=== PATIENT | female | born 1995 | race American Indian/Alaskan Native ===

== ENCOUNTER 2017-09-10 11:55 | Emergency (ER) | payer MEDICAID ==
[2017-09-10 13:15] LABS: Basophils % (Auto) 0.3 % (0.0-1.8); Eosinophils % (Auto) 0.4 % (0.0-4.3); Hematocrit 27.8 % (30.3-42.9); Hemoglobin 8.9 gm/dl (10.1-14.3); Lymphocytes # (Auto) 1.4 K/mm3 (1.2-5.4); Lymphocytes % (Auto) 22.8 % (13.4-35.0); Mean Corpuscular HGB Conc 32 % (30-34); Mean Corpuscular Hemoglobin 26 pg (28-32); Mean Corpuscular Volume 82 fl (79-97); Monocytes # (Auto) 0.8 K/mm3 (0.0-0.8); Platelet Count 158 K/mm3 (140-440); Red Cell Distribution Width 16.4 % (13.2-15.2)
[2017-09-10 13:35] LABS: Bilirubin,Urine NEG (Negative); Blood,Urine NEG (Negative); Color,Urine Yellow (Yellow); Mucus,Urine FEW /HPF; Protein,Urine <15 mg/dL mg/dL (Negative)
[2017-09-10 16:21] VITALS: BP 110/61
--- NOTE | 2017-09-10 17:02 | Ultrasound Report ---
FINAL REPORT EXAM: US OB > = 14 WEEKS FETUS HISTORY: PREG AND ABD PAIN TECHNIQUE: Ultrasound evaluation of the gravid uterus of twin A PRIORS: Ob ultrasound of twin B FINDINGS: Twin A: There is a single viable intrauterine with documented cardiac activity. Multiple ultrasound measurements are made to determine a composite gestational age. Nonspecific slight increased cephalic index of 84.8, upper limits 83.0. Other ratios are within normal limits. Limited study due to twin gestational and gestational age There is no evidence of placenta previa or abruption. The maternal cervix is closed. The quantity of visualized amniotic fluid appears grossly normal. No sonographic abnormality in the visualized portion of the anatomy. Heart rate: 152 beats per minute position: Cephalic Placental position: Left lateral, grade 1 Maternal cervix length: 3.3cm Amniotic fluid largest vertical pocket: 7.8cm Estimated weight: 1246 g Ultrasound estimated gestational age: 28 weeks 6 days Ultrasound estimated delivery date: 11/27/2017 LMP estimated gestational age: 23 weeks 3 days LMP estimated delivery date: 01/04/2018 IMPRESSION: Twin viable intrauterine with the above parameters for twin A
--- NOTE | 2017-09-10 17:05 | Ultrasound Report ---
FINAL REPORT EXAM: US OB > = 14 WK FETUS ADD GEST HISTORY: PREG ABD PAIN TECHNIQUE: Ultrasound evaluation of the gravid uterus of twin B PRIORS: Twin A ultrasound 09/10/2017 FINDINGS: Twin B: There is a single viable intrauterine with documented cardiac activity. Multiple ultrasound measurements are made to determine a composite gestational age. ratios are within normal limits. There is no evidence of placenta previa or abruption. The maternal cervix is closed. The quantity of visualized amniotic fluid appears grossly normal. No sonographic abnormality in the visualized portion of the anatomy. Heart rate: 133 beats per minute position: Breech Placental position: Fundal, grade 1 Maternal cervix length: 3.3cm Amniotic fluid largest vertical pocket: 6.0cm Estimated weight: 1456 g Ultrasound estimated gestational age: 29 weeks 5 days Ultrasound estimated delivery date: 11/21/2017 LMP estimated gestational age: 23 weeks 3 days LMP estimated delivery date: 01/04/2018 IMPRESSION: Twin viable intrauterine with the above parameters for twin B
--- NOTE | 2017-09-10 17:25 | Emergency Department Report ---
ED Female HPI - General Chief complaint: Abdominal Pain Stated complaint: PREG/DONT HAVE A DOC/ABD PAIN Time Seen by Provider: 09/10/17 16:39 Source: patient Mode of arrival: Ambulatory Limitations: No Limitations - History of Present Illness Initial comments: Patient is 22 years old female 2 para 1, 23 weeks twins . Patient does not have any care so far. She does not have an OB doctor that she follow-up loose. Patient presented to the ER complaining of abdominal pain crampy in nature, and daphnie. Patient denied any vaginal bleeding or vaginal discharge. No fever, nausea or vomiting. MD Complaint: pelvic pain - Related Data Home Medications Medication Instructions Recorded Confirmed Last Taken Pnv with Ca,No.71/Iron/FA 1 tab PO DAILY 06/30/14 06/30/14 06/26/14 [ Vitamin Tablet] 1 tab Allergies Allergy/AdvReac Type Severity Reaction Status Date / Time No Known Allergies Allergy Verified 06/29/14 06:18 ED Review of Systems ROS: Stated complaint: PREG/DONT HAVE A DOC/ABD PAIN Other details as noted in HPI Comment: All other systems reviewed and negative Constitutional: denies: chills, fever Respiratory: denies: cough, orthopnea, shortness of breath, SOB with exertion, SOB at rest, wheezing Cardiovascular: denies: chest pain, palpitations, dyspnea on exertion Gastrointestinal: abdominal pain. denies: nausea, vomiting, diarrhea, constipation, hematemesis, melena, hematochezia Genitourinary: denies: urgency, dysuria, frequency, hematuria Neurological: denies: headache, weakness, numbness ED Past Medical Hx - Past Medical History Hx Hypertension: No Hx Congestive Heart Failure: No Hx Diabetes: No Hx Deep Vein Thrombosis: No Hx Renal Disease: No Hx Sickle Cell Disease: No Hx Seizures: No Hx Asthma: No Hx COPD: No Hx HIV: No - Surgical History Past Surgical History?: No - Social History Smoking Status: Never Smoker Substance Use Type: None - Medications Home Medications: Home Medications Medication Instructions Recorded Confirmed Last Taken Type Pnv with Ca,No.71/Iron/FA 1 tab PO DAILY 06/30/14 06/30/14 06/26/14 History [ Vitamin Tablet] 1 tab ED Physical Exam - General Limitations: No Limitations General appearance: alert, in no apparent distress - Head Head exam: Present: atraumatic, normocephalic, normal inspection - Eye Eye exam: Present: normal appearance, PERRL - ENT ENT exam: Present: normal exam, normal orophraynx, mucous membranes moist - Neck Neck exam: Present: normal inspection, full ROM. Absent: tenderness, meningismus - Respiratory Respiratory exam: Present: normal lung sounds bilaterally. Absent: respiratory distress, wheezes, rales, rhonchi, accessory muscle use, decreased breath sounds , prolonged expiratory - Cardiovascular Cardiovascular Exam: Present: tachycardia - GI/Abdominal GI/Abdominal exam: Present: soft, distended, normal bowel sounds, organomegaly ( gravid uterus). Absent: tenderness, guarding, rebound, rigid, mass, bruit, pulsatile mass, hernia - Back Exam Back exam: Present: normal inspection, full ROM. Absent: CVA tenderness (R), CVA tenderness (L), muscle spasm, paraspinal tenderness, vertebral tenderness - Neurological Exam Neurological exam: Present: alert, oriented X3, CN II-XII intact, normal gait - Skin Skin exam: Present: warm, intact, normal color ED Course Vital Signs 09/10/17 09/10/17 12:32 16:20 Temperature 98.1 F Pulse Rate 116 H 80 Respiratory 15 16 Rate Blood Pressure 123/69 Blood Pressure 110/61 [Left] O2 Sat by Pulse 99 100 Oximetry ED Medical Decision Making - Lab Data Result diagrams: 09/10/17 12:50 - Radiology Data Radiology results: report reviewed Referring Physician: KIP CHASE Patient Name: YOLIS MATTSON Date of : 1995 Sex: Female Report Date: 2017-09-10 Report Status: Finalized Findings [facility] [address] [place] [address] Ultrasound Report Signed Patient: YOLIS MATTSON MR#: [id number] : 1995 Acct:[id number] Age/Sex: 22 / F ADM Date: 09/10/17 Loc: ED Attending Dr: Ordering Physician: KIP CHASE Date of Service: 09/10/17 Procedure(s): US OB >= 14 weeks Fetus Accession Number(s): [id number] cc: MOHAMED H. ELBASHA FINAL REPORT EXAM: US OB gt; = 14 WEEKS FETUS HISTORY: PREG AND ABD PAIN TECHNIQUE: Ultrasound evaluation of the gravid uterus of twin A PRIORS: Ob ultrasound of twin B FINDINGS: Twin A: There is a single viable intrauterine with documented cardiac activity. Multiple ultrasound measurements are made to determine a composite gestational age. Nonspecific slight increased cephalic index of 84.8, upper limits 83.0. Other ratios are within normal limits. Limited study due to twin gestational and gestational age There is no evidence of placenta previa or abruption. The maternal cervix is closed. The quantity of visualized amniotic fluid appears grossly normal. No sonographic abnormality in the visualized portion of the anatomy. Heart rate: 152 beats per minute position: Cephalic Placental position: Left lateral, grade 1 Maternal cervix length: 3.3cm Amniotic fluid largest vertical pocket: 7.8cm Estimated weight: 1246 g Ultrasound estimated gestational age: 28 weeks 6 days Ultrasound estimated delivery date: 11/27/2017 LMP estimated gestational age: 23 weeks 3 days LMP estimated delivery date: 01/04/2018 IMPRESSION: Twin viable intrauterine with the above parameters for twin A Transcribed By: BAL Dictated By: JESSICA BENTON MD Electronically Authenticated By: JESSICA BENTON MD Signed Date/Time: 09/10/171655 DD/ 55 TD/TT: 09/10/171655 - Medical Decision Making I discussed the patient with Prachi Newton, nurse practitioner with Dr. Pickard, she advised to send the patient to labor and delivery. Critical care attestation.: If time is entered above; I have spent that time in minutes in the direct care of this critically ill patient, excluding procedure time. ED Disposition Clinical Impression: care insufficient, Abdominal pain affecting , Twin Disposition: -09 OP ADMIT IP TO THIS HOSP Is pt being admited?: No Condition: Stable Instructions: Abdominal Pain (ED) Additional Instructions: Proceed to labor and delivery Referrals: PRIMARY CARE, [Primary Care Provider] - 3-5 Days
[2017-09-10] MEDS ORDERED: NACL 0.9% 1000 ML 1,000 ML IV ONE (17:27)
== END 2017-09-10 18:18 | disposition admitted as inpatient to this hospital (09) ==
LOC: ED 11:55
DX: O26.892 Other specified pregnancy related conditions, second trimester (principal); R10.9 Unspecified abdominal pain; Z3A.23 23 weeks gestation of pregnancy
CPT/HCPCS: 36415; 76805; 76810; 81001; 84702; 85025; 96360; 99284; J7030